=== PATIENT | female | born 1990 | race African-American/Black ===

== ENCOUNTER 2023-05-31 15:08 | Emergency (ER) | payer BC, SELFPAY ==
--- NOTE | 2023-05-31 15:00 | RT.EKG_ITS ---
APPROVED REPORT Exam: Resting ECG Reason for Exam: Chest Pain Patient Location: E HR:88 bpm ECG Measurements Heart Rate 88 AXIS IA 131 P 64 QRSd 89 QRS 56 QT 354 T 42 QTc 428 Conclusion Sinus rhythm...normal P axis, V-rate 60- 99 Left atrial enlargement...P, P'>60mS, <-0.15mV V1 I have reviewed and interpreted ECG and agree with software generated interpretation.
[2023-05-31 15:11] VITALS: BP 121/62; PULSE 92; RESP 16; O2SAT 98
--- NOTE | 2023-05-31 16:08 | W.ED.GENAD ---
Discharge Plan Discharge Details Chief Complaint: Chest Pain Primary Care Provider: Steff,Local ED Provider: Polo Boo [facility] General Date/Time Provider Initiated Documentation: 05/31/23 15:43. HPI Narrative: 32 year-old female presents to ED today by POV/ambulating with a chief complaint of chest pain- sudden onset while driving, lasting less than 5 minutes with onset just prior to arrival. Quality described as sternal chest pain, no radiation to shortness of breath, dizziness, diaphoresis, cough, fever, nausea/vomiting. Severity is described as 0/10 currently, was severe at onset. Palliating factors include got better when she got out of the car to walk into the ED. Provoking factors include nothing specific- endorses history of GERD, and had negative workup for chest pain last week in [place], [place]. Events leading up to the incident/Associated Symptoms: Patient is adopted and does not know biological family for history. Patient not anticoagulated. General Stated Complaint: Chest Pain TL: 2 Review of Systems All systems reviewed & are unremarkable except as noted in HPI and below Exam Narrative Exam Narrative: GENERAL APPEARANCE: Well-nourished, non-toxic, awake and alert, atraumatic, no acute distress. SKIN: Warm, normal for ethnicity, dry, intact, without rashes/lesions/ulcerations. HEAD: Normocephalic, atraumatic, normal hair distribution for gender/age. EYES: Pupils PERRLA, EOMs intact without nystagmus, normal conjunctiva, no exudates on lids/lashes. ENT: Nares patent, no circumoral cyanosis, no facial swelling NECK: Supple, trachea midline, painless cervical ROM. LUNGS/CHEST: Lungs CTA bilaterally- no rhonchi/rales/wheezes diffusely, non-labored respirations, normal A/P diameter, symmetrical expansion, no chest wall deformity HEART (CV/PV): Regular rate and rhythm without murmur, no peripheral edema, no JVD. ABDOMEN: Soft, non-distended, no guarding. MSK: Normal ROM, no swelling/deformity to bilateral UEs or LEs, moving all extremities without weakness, no cyanosis, spine midline without tenderness, normal curvature. NEURO: Mental Status AAOx4 - alert to person, place, time, events No facial droop, no forehead involvement. Motor: No focal weakness - strength 5/5 in bilateral UEs and LEs, proximal and distal, symmetric. Sensory: sensation intact to light touch globally. Gait normal: patient ambulated without ataxia into ED room. PSYCH: euthymic, cooperative, pleasant, appropriate speech Course Vital Signs Vital signs: Vital Signs Pulse 92 H 05/31/23 15:11 Respiratory Rate 16 05/31/23 15:11 Blood Pressure 121/62 05/31/23 15:11 Pulse Oximetry 98 05/31/23 15:11 Pulse 92 H 05/31/23 15:11 Respiratory Rate 16 05/31/23 15:11 Blood Pressure 121/62 05/31/23 15:11 Blood Pressure Position Sitting 05/31/23 15:11 Pulse Oximetry 98 05/31/23 15:11 Oxygen Delivery Method Room Air 05/31/23 15:11 Oxygen Flow Rate 0 05/31/23 15:11 Pain Level 7 05/31/23 15:11 Comment 7 when sitting, better with standing and laying down 05/31/23 15:11 Medical Decision Making This dictation utilizes [id number] dictation software and may contain unedited grammatical errors. 32 y/o F presents to ED today with a chief complaint of brief < 5 minutes substernal chest pain that improved with ambulation, started at rest in the car- denies SOB/dizziness/nausea, no cough. Patient had a negative workup for chest pain in [place], [place] last week. Patients' medical history: GERD. Family and social history: adopted, unknown. Pertinent exam findings / vital signs include benign cardiopulmonary exam, nontoxic. Differential / pathologies of concern include ACS, costchondritis, anxiety, GERD, PE. Diagnostic studies of: -CBC, CMP, Trop I (+3hr), BNP, EKG, D-dimer. 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 ED Course/Assessment/Plan: Patient seen in the emergency department in the triage room, states that she needs to leave to supervisor picking crew her daughter, we discussed that we would not be ruling out anything in regards to her chest pain today that that visit usually takes 3 hours for repeat troponin. I did try to provide some reassurance that her story did not sound cardiac or exertional in nature and she has a history of GERD, states that she can return anytime for workup and return if symptoms. Patient did sign AMA paperwork, was not experiencing chest pain in ED, and acknowledges risks of undiagnosed chest pain, including . Disposition of Chest Pain of Uncertain Etiology. Patient verbalized understanding of the plan and return to ED criteria and engaged in shared decision making. Medical Records Medical records narrative: none available Quality:SDKS Health Related Social Needs: No Data to Display [facility] Social History Smoking risk assessment performed?: No
== END 2023-05-31 16:24 | disposition home or self-care (01) ==
LOC: ER 16:28
PROVIDERS: Emergency Provider Physician Assistant
DX: R07.9 Chest pain, unspecified (principal); Z53.29 Procedure and treatment not carried out because of patient's decision for other reasons
CPT/HCPCS: 80053; 83690; 93005; 99283; 83880; 84484; 85025; 85379; 93010